=== PATIENT | female | born 1955 | race American Indian/Alaskan Native ===

== ENCOUNTER 2016-05-20 11:28 | Outpatient (CLI) | payer OTHER ==
--- NOTE | 2016-05-20 13:49 | Mammography Report ---
BONE DEXA:05/20/16 11:28:00 CLINICAL: Postmenopausal. No comparison. TECHNIQUE: Two site bone DEXA performed on an Hologic scanner. FINDINGS: The average BMD of the lumbar spine L1-L4 is 0.998g/cm squared with a T-score of -1.4 and a Z-score of +0.3. The average BMD of the left hip is 0.866g/cm squared with a T-score of -1.1 and a Z-score of -0.2. IMPRESSION: WHO classification: Osteopenia with increased fracture risk based on the spine and left hip measurements. RECOMMENDATION: Clinical correlation and routine screening. DEFINITIONS: BMD = Bone Mineral Density T-score = BMD related to mean peak bone mass of young adult (mean expressed in Standard Deviation) Z-score = Age matched BMD expressed in SD World Health Organization (WHO) Diagnostic Criteria Normal T-score > -1 SD Osteopenia T-score between -1 and -2.4 SD Osteoporosis T-score -2.5 SD or below NOTE: BMD is not the only risk factor for fracture. One should also consider factors such as the patient's age, risk of falling, previous osteoporotic fracture, family history of osteoporotic fractures, current smoker, and low body weight. Z-scores are not calculated if >80 years of age.
--- NOTE | 2016-05-20 15:11 | Mammography Report ---
BILATERAL DIGITAL SCREENING MAMMOGRAM WITH CAD: 05/20/16 11:28:00 CLINICAL: Routine screening.Breast cancer survivor status post right partial mastectomy. COMPARISON:02/21/15 FINDINGS: Heterogeneously dense breasts. The right breast is smaller than the left with stable upper outer scar. No mass, suspicious architectural distortion or suspicious calcifications. IMPRESSION: No mammographic evidence of malignancy. BI-RADS CATEGORY: 2 -- Benign RECOMMENDATION: Routine mammographic screening in one year. COMMENT: Patient follow-up letters are generated via our [employer] application.
== END 2016-05-20 11:29 | disposition home or self-care (01) ==
LOC: SPVWC 11:28
PROVIDERS: ATTEND Nurse Practitioner
DX: Z12.31 Encounter for screening mammogram for malignant neoplasm of breast (principal); M85.88 Other specified disorders of bone density and structure, other site; Z78.0 Asymptomatic menopausal state; Z90.11 Acquired absence of right breast and nipple
CPT/HCPCS: 77080; G0202; 77067

== ENCOUNTER 2016-11-28 14:18 | Outpatient (CLI) | payer OTHER ==
--- NOTE | 2016-11-28 14:45 | XRay Report ---
RIGHT KNEE RADIOGRAPHS INDICATION: Right knee pain. COMPARISON: None similar. FINDINGS: Standing AP, lateral, oblique and sunrise views of the right knee suggest slight medial compartment narrowing. Minimal degenerative spurring. Intact overall articulation. No suprapatellar effusion. Superior patellar enthesophyte. CONCLUSION: No acute right knee bony abnormality with slight degenerative changes possible, as described. Thank you for the opportunity to participate in this patient's care.
== END 2016-11-28 14:19 | disposition home or self-care (01) ==
LOC: SPVIMAG 14:18
PROVIDERS: ATTEND Internal Medicine
DX: M25.861 Other specified joint disorders, right knee (principal)

== ENCOUNTER 2017-03-21 09:31 | Outpatient (CLI) | payer OTHER ==
--- NOTE | 2017-03-21 15:47 | XRay Report ---
XRAY RIGHT SHOULDER THREE VIEWS: 03/21/17 09:31:00 CLINICAL: Right shoulder pain. FINDINGS: Mild glenohumeral joint arthritis. Normal AC joint. No fracture or dislocation. Mild irregularity at the greater tuberosity of the humerus. Normal soft tissues. IMPRESSION: Mild glenohumeral joint arthritis and mild degenerative change at the greater tuberosity suggesting possible rotator cuff disease.
== END 2017-03-21 09:32 | disposition home or self-care (01) ==
LOC: SPVIMAG 09:31
PROVIDERS: ATTEND Internal Medicine
DX: M19.011 Primary osteoarthritis, right shoulder (principal)

== ENCOUNTER 2018-02-21 12:44 | Outpatient (CLI) | payer OTHER ==
--- NOTE | 2018-02-21 14:07 | Ultrasound Report ---
RIGHT DIGITAL DIAGNOSTIC MAMMOGRAM : 02/21/18 12:44:00 CLINICAL: Recalled for asymmetry. COMPARISON:01/31/18 screening FINDINGS: Spot compression MLO views were performed and demonstrate partial effacement of asymmetry in the inferior breast. Ultrasound of the lower right breast was performed and demonstrated normal fibroglandular and fatty structures with no mass, cyst or shadowing. IMPRESSION: Benign asymmetry and negative right breast ultrasound. BI-RADS CATEGORY: 2 - - Benign RECOMMENDATION: Routine mammographic screening in one year. ACR BI-RADS MAMMOGRAPHIC CODES: 0 = Needs additional imaging evaluation; 1 = Negative; 2 = Benign; 3 = Probably benign; 4 = Suspicious; 5 = Malignant; 6 = Known biopsy-proven malignancy COMMENT: 1. Dense breast tissue, i.e., adenosis, fibrocystic changes, etc., may obscure an underlying neoplasm. 2. Approximately 10% of cancers are not detected with mammography. 3. A negative mammography report should not delay biopsy if a clinically suspicious mass is present. COMMENT: Patient follow-up letters are generated via our [employer] application.
== END 2018-02-21 12:45 | disposition home or self-care (01) ==
LOC: SPVWC 12:44
PROVIDERS: ATTEND Internal Medicine
DX: R92.8 Other abnormal and inconclusive findings on diagnostic imaging of breast (principal)

== ENCOUNTER 2019-01-09 14:23 | Outpatient (CLI) | payer OTHER ==
--- NOTE | 2019-01-09 15:41 | Mammography Report ---
DIGITAL BILATERAL DIAGNOSTIC MAMMOGRAM WITH CAD, 01/09/2019 INDICATION: RIGHT BREAST PAIN. Breast cancer survivor status post right partial mastectomy. TECHNIQUE: Digital bilateral mammographic imaging was performed. This examination was interpreted with the benefit of Computer-aided Detection analysis. COMPARISON: 01/31/2018 Breast Density: There are scattered areas of fibroglandular density. FINDINGS: The right breast is smaller than the left with stable upper outer benign postsurgical scar. Bilateral benign calcifications. No mass, suspicious architectural distortion or suspicious calcific ations. IMPRESSION: No mammographic evidence of malignancy. Follow up recommendation: Routine BI-RADS Category 2: Benign. A "normal" or negative report should not discourage follow up or biopsy of a clinically significant f inding. A written summary of these findings will be mailed to the patient. The patient will be entered into a mammography reporting system which will generate a reminder letter for the patient's next appointmen t at the appropriate interval. According to the [employer], yearly mammograms are recommended starting at age 40 and continuing as long as a woman is in good health. Breast MRI is recommended for women with an natalie roximately 20-25% or greater lifetime risk of breast cancer, including women with a strong family his tory of breast or ovarian cancer and women who have been treated for Hodgkin's disease. Signer Name: Bc Pretty MD Signed: 01/09/2019 3:36 PM Workstation Name: [id number]
== END 2019-01-09 14:24 | disposition home or self-care (01) ==
LOC: SPVWC 14:23
PROVIDERS: ATTEND Internal Medicine
DX: N64.4 Mastodynia (principal)
CPT/HCPCS: 77066